=== PATIENT | female | born 1990 | race Caucasian/White ===

== ENCOUNTER 2020-11-27 21:23 | Emergency (ER) | payer OTHER, SELFPAY ==
[2020-11-27 21:51] VITALS: BP 123/71; PULSE 94; RESP 16; TEMP 36.5; O2SAT 96; BMI 32.1
--- NOTE | 2020-11-27 22:12 | XRR_ITS ---
PROCEDURE INFORMATION: Exam: XR Left Elbow Exam date and time: 11/27/2020 10:12 PM Age: 30 years old Clinical indication: Injury or trauma; Work related; Left; Patient HX: Fall with laceration to posterior aspect of elbow. ; Additional info: Injury/laceration TECHNIQUE: Imaging protocol: XR Left elbow. Views: 3 or more views. COMPARISON: No relevant prior studies available. FINDINGS: Bones/joints: There is a laceration in the posterior aspect of the proximal forearm. There is no evidence of fracture or dislocation. Soft tissues: No opaque foreign body is identified. XR/XR elbow LT min 3V* [id number] IMPRESSION: 1. Soft tissue laceration 2. There is no evidence of fracture or dislocation.
--- NOTE | 2020-11-27 22:32 | ED_ITS ---
HPI - Wound/Laceration General: Chief Complaint: Wound/Laceration Stated Complaint: L arm laceration Time Seen by Provider: 11/27/20 22:32 Source: patient Mode of arrival: ambulatory Limitations: no limitations History of Present Illness: HPI narrative: Patient is a 30-year-old female who presents to ED today for evaluation of a laceration to her left elbow that she sustained while at work. Patient tells me she accidentally tripped/slipped and fell while at work and struck her left elbow on an object sustaining a laceration. Last tetanus unknown. No other injury sustained during the fall. She states this is a Worker's Comp injury. Onset (ago): hour(s) Extremity Location: Left: elbow Place: work Patient tetanus UTD: No Context: accidental Associated symptoms: Reports no associated symptoms Treatments prior to arrival: bandage Review of Systems Musc: Reports: joint pain (L elbow); Denies: joint swelling, joint redness, joint warmth or limited range of motion Skin/Breast: Reports: other (laceration) Neuro: Denies: numbness in extremities, weakness in extremities or sensory changes [facility] ED Female Reproductive History: Date of last menstrual period: 11/14/20 Physical Exam Const: COMMON NORMALS: no acute distress, patient oriented x3, no limitations and alert GENERAL APPEARANCE: cooperative Extremity: COMMON NORMALS: full ROM, capillary refill normal, no joint enlargement and no clubbing, cyanosis or edema GENERAL: Yes normal exam except as noted LEFT UPPER EXTREMITY: Yes elbow joint (3.0 laceration to posterior elbow) Left elbow: Yes ROM (normal) and Yes neurovascular exam (normal) EXTREMITY IMAGE (BACK): 1. 3.0 fairly superficial laceration Neuro: COMMON NORMALS: patient oriented x3, moves all extremities, no focal motor deficits and no sensory deficits noted SENSORIUM/ORIENTATION: Yes alert Skin: NARRATIVE SKIN EXAM: see extremity assessment for pertinent skin findings Procedures Laceration Laceration 1: Site: upper extremity Side (If applicable): left Size (cm): 3.0 Description: linear Depth: simple, single layer Local Anesthetic: lidocaine 1% Amount of anesthesia used (mL): 1.0 Pre-repair: wound explored and irrigated extensively Skin layer closed with: nylon Size (cm): 4-0 Number of sutures: 7 Technique: simple, interrupted Course Vital Signs: Vital signs: Vital Signs Temperature 97.7 F 11/27/20 21:51 Pulse Rate 94 11/27/20 21:51 Respiratory Rate 16 11/27/20 23:20 Blood Pressure 123/71 11/27/20 21:51 Pulse Oximetry 96 11/27/20 21:51 MDM - Wound/Laceration Imaging Data^: XR L elbow: My impression: soft tissue lac; no fbs, fxs, or dislocations noted Radiologist's impression: [address] [address] XRay Report Signed Patient: Louise Cardona Unit #: [id number] : 1990 Acct#:[id number] Age/Sex: 30 / F ADM Date: 11/13 11/02 Loc: ER Room/Bed: Attending Dr: Ordering Provider/Ordering MD: Estela Lloyd Date of Service: 11/27/20 Procedure(s): XR elbow LT min 3V* [id number] Accession Number(s): [id number] Report Number: [id number] PROCEDURE INFORMATION: Exam: XR Left Elbow Exam date and time: 11/27/2020 10:12 PM Age: 30 years old Clinical indication: Injury or trauma; Work related; Left; Patient HX: Fall with laceration to posterior aspect of elbow. ; Additional info: Injury/laceration TECHNIQUE: Imaging protocol: XR Left elbow. Views: 3 or more views. COMPARISON: No relevant prior studies available. FINDINGS: Bones/joints: There is a laceration in the posterior aspect of the proximal forearm. There is no evidence of fracture or dislocation. Soft tissues: No opaque foreign body is identified. XR/XR elbow LT min 3V* [id number] IMPRESSION: 1. Soft tissue laceration 2. There is no evidence of fracture or dislocation. Dictated By: Gunenr Gasca Signed By: Gunner Gasca Signed Date/Time: 11/27/202250 DD/ 49 Discharge Plan Discharge Patient Disposition: Home Clinical Impression: Laceration of left elbow without complication Qualifiers: Encounter type: initial encounter Qualified Code(s): S51.012A - Laceration without foreign body of left elbow, initial encounter Condition: Stable Discharge Orders: Discharge ED (Routine); Ordered 11/27/20 Ordered By: Estela Lloyd Patient Instructions: Suture Care (ED), Laceration (ED) Activity Restrictions/Additional Instructions: Keep wound/laceration clean with warm soap and water twice daily. Monitor for signs of infection such as redness, swelling, increased pain, or drainage. Please seek medical re-evaluation if these occur. If you received sutures today these will need to be removed (unless you were told by the provider that they are absorbable). The provider should have discussed with you the length of time until removal-7 DAYS. You may return to the emergency department for this service. If your wound was closed with Steri-Strips or glue/adhesive these will fall off within the next week or so. Follow up with Worker's Comp as instructed. Coding Level of Care Code ED [employer] Associate Professor for Maximilian Roblero
[2020-11-27] MEDS: tetanus-diphtheria tox (adult) 0.5 mL SDV IM (23:10)
[2020-11-27 23:20] VITALS: RESP 16
== END 2020-11-27 23:21 | disposition home or self-care (01) ==
PROVIDERS: Emergency Provider Physician Assistant
DX: S51.012A Laceration without foreign body of left elbow, initial encounter (principal); W01.10XA Fall on same level from slipping, tripping and stumbling with subsequent striking against unspecified object, initial encounter; Y99.0 Civilian activity done for income or pay; Z23 Encounter for immunization
CPT/HCPCS: 12002; 73080; 90714; 96372; 99283

== ENCOUNTER 2020-12-15 15:35 | Emergency (ER) | payer MEDICAID, SELFPAY ==
[2020-12-15 16:13] VITALS: BP 110/57; PULSE 99; RESP 18; TEMP 36.8; O2SAT 97; BMI 32.1
--- NOTE | 2020-12-15 16:27 | ED_ITS ---
HPI - Back Pain/Injury General: Chief Complaint: Back Pain/Injury Stated Complaint: BACK PAIN Time Seen by Provider: 12/15/20 16:23 History of Present Illness: HPI Narrative: Patient is a 30-year-old female comes to the ED with lower back pain. She states she has been dealing with lower back pain for the past 3 weeks but today she woke up and felt more intense lower back pain with pain radiating down her left leg. Denies any trauma or injury to cause worsening pain. Denies any bladder bowel incontinence, pelvic anesthesia or weakness to lower extremities. Associated symptoms: Deny abdominal pain, chills, dysuria, fatigue, fever(s), hematuria, nausea or vomiting Review of Systems Const: Denies: fever(s), chills or fatigue Eyes: Denies: change in vision or eye discomfort ENMT: Denies: throat pain, odynophagia, nasal discharge or nasal congestion Card: Denies: chest pain, palpitations, edema, swelling of feet/ankles, dyspne a on exertion or orthopnea Resp: Denies: dyspnea, productive cough or non-productive cough GI: Denies: abdominal pain, nausea, vomiting, diarrhea, constipation or hematochezia : Denies: flank pain, dysuria or hematuria Musc: Reports: back pain (lower back); Denies: neck pain or extremity swelling Skin/Breast: Denies: rash or new lesions Neuro: Denies: headache(s), numbness in extremities or weakness in extremities [facility] ED Female Reproductive History: Date of last menstrual period: 12/09/20 Physical Exam Const: COMMON NORMALS: no acute distress, patient oriented x3, healthy appearing and alert GENERAL APPEARANCE: cooperative and comfortable HENMT: COMMON NORMALS: normocephalic HEAD & SCALP: normocephalic MOUTH: Normal oral and palatal mucosa present THROAT: posterior oropharynx normal and uvula midline Neck/C-Spine: COMMON NORMALS: supple GENERAL: Yes normal visual inspection Resp: COMMON NORMALS: normal respiratory effort, No retractions, No use of accessory muscles and clear to auscultation bilaterally AUSCULTATION: clear to auscultation bilaterally Cardio: COMMON NORMALS: regular rate, regular rhythm, S1 normal heart sound present, S2 normal heart sound present, No gallops present (Cardio), No clicks present (Cardio), No murmurs present (Cardio) and Peripheral pulses 2+ throughout RATE: regular rate RHYTHM: regular rhythm HEART SOUNDS: S1 normal heart sound present and S2 normal heart sound present PERIPHERAL PULSES: Peripheral pulses 2+ throughout GI: COMMON NORMALS: Normal to inspection, nondistended, normoactive bowel sounds present, Soft to palpation, non-tender and no masses PALPATION: Yes Soft to palpation : COMMON NORMALS: Yes no CVA tenderness BLADDER/KIDNEY EXAM: Yes no CVA tenderness Back/Pelvis: COMMON NORMALS: no CVA tenderness LUMBAR SPINE/LOWER BACK: Yes pain with ROM and Yes paraspinal muscle tenderness Extremity: COMMON NORMALS: normal to inspection Neuro: COMMON NORMALS: patient oriented x3 and moves all extremities SENSORIUM/ORIENTATION: Yes alert Skin: GENERAL SKIN EXAM: dry skin Course Vital Signs: Vital signs: Vital Signs Temperature 98.2 F 12/15/20 16:13 Pulse Rate 99 12/15/20 16:13 Respiratory Rate 18 12/15/20 16:13 Blood Pressure 110/57 12/15/20 16:13 Pulse Oximetry 97 12/15/20 16:13 MDM - Back Pain/Injury MDM Narrative: Medical decision making narrative: Patient is a 30-year-old female comes to the ED with lower back pain that radiates down into left leg. Denies any injuries or traumas to cause acute pain. Denies any cauda equina symptoms. Patient was diagnosed with lumbar radiculopathy and discharged home with a prescription for ibuprofen 800, cyclobenzaprine and a Medrol Dosepak. Patient was told to follow-up with her PCP in 7 to 10 days for reevaluation. Return to ED precautions given. Patient understood agree with plan. Discharge Plan Discharge Patient Disposition: Home Clinical Impression: Lumbar radiculopathy Condition: Stable Prescriptions: New ibuprofen 800 mg tablet 800 mg PO Q8H PRN (Reason: pain) Qty: 20 RF: 0 cyclobenzaprine 10 mg tablet 10 mg PO BID PRN (Reason: muscle spasm) Qty: 15 RF: 0 Medrol (Neymar) 4 mg tablets,dose pack See Rx Instructions .ROUTE .COMPLEX Qty: 21 RF: 0 Discharge Orders: Discharge ED (Routine); Ordered 12/15/20 Ordered By: Sascha Rodriguez Discharge Diet: Regular Discharge Activity: Increase activity as tolerated Patient Instructions: Lumbar Radiculopathy (ED) Activity Restrictions/Additional Instructions: Follow-up with medical provider as directed in 7 to 10 days reevaluation. Apply cold pack on lower back and stretch lower back daily to help with symptoms. Take medications as prescribed. Cyclobenzaprine is a muscle relaxer can cause some drowsiness so take at night before bed. Return to the ER or your medical provider if condition worsens. Please read and understand discharge instructions. Thank you for choosing [facility] for your healthcare needs today. Please realize this is an emergency room and that we are providing you with a medical screening exam and this may not be complete and all inclusive of all the testing and or work up that you may need to determine your ailment or severity of your illness. It is very important that you follow up as instructed or that you return to the Emergency Department should you have concerns or if your condition changes or worsens in any way. Coding Level of Care Code ED [employer] Operator for Maximilian Roblero Exam Comprehensive
[2020-12-15] MEDS: dexamethasone 10 mg/mL INJ IM (16:43)
[2020-12-15] MEDS: ketorolac 60 mg/2 mL INJ IM (16:44)
== END 2020-12-15 16:50 | disposition home or self-care (01) ==
PROVIDERS: Emergency Provider Physician Assistant
DX: M54.16 Radiculopathy, lumbar region (principal)
CPT/HCPCS: 96372; 99283; J1100; J1885

== ENCOUNTER 2021-02-06 15:36 | Emergency (ER) | payer MEDICAID, SELFPAY ==
[2021-02-06 15:44] VITALS: BP 109/69; PULSE 75; RESP 17; TEMP 36.1; O2SAT 97; BMI 28.6
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
--- NOTE | 2021-02-06 16:09 | XR_ITS ---
WS: [id number] Exam: XR wrist RT min 3V* [id number] Date/Time of Exam: 02/06/2021 4:23 PM Reason For Exam: injury No acute fracture or dislocation. Soft tissue swelling along the distal ulna. Articular relationships are intact. XR/XR wrist RT min 3V* [id number] IMPRESSION: 1. No fracture or dislocation. 2. Soft tissue swelling along the distal ulna.
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
[2021-02-06 17:37] VITALS: BP 104/70; PULSE 89; RESP 17; O2SAT 97
--- NOTE | 2021-02-07 09:26 | DCPLANNER ---
sales engineer account manager had message to schedule a follow up appointment for patient with ENT. sales engineer account manager faxed patients information to Lou Moran and Anahi at [facility]. Patients information will be printed and reviewed. Clinic will call patient with appointment information.
--- NOTE | 2021-02-12 07:45 | DCPLANNER ---
Patient has a follow up appointment scheduled for Friday, February 12, 2021 at 10:[address] Cornelius. Clinic will call patient with appointment information.
--- NOTE | 2021-02-13 13:31 | DCPLANNER ---
Patient had a follow up appointment scheduled for 02.12.[address] Cornelius at ENT - patient did attend appointment.
== END 2021-02-06 17:37 | disposition home or self-care (01) ==
PROVIDERS: Emergency Provider Nurse Practitioner Family
DX: S02.2XXA Fracture of nasal bones, initial encounter for closed fracture (principal); S60.211A Contusion of right wrist, initial encounter; W20.8XXA Other cause of strike by thrown, projected or falling object, initial encounter
CPT/HCPCS: 70450; 70486; 73110; 99282

== ENCOUNTER 2021-04-04 12:51 | Emergency (ER) | payer MEDICAID, SELFPAY ==
[2021-04-04 13:01] VITALS: BP 125/62; PULSE 98; RESP 20; O2SAT 96
[2021-04-04 13:04] VITALS: BP 125/62; PULSE 84; RESP 18; TEMP 36.6; O2SAT 94; BMI 27.4
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
[2021-04-04] MEDS: acetaminophen-codeine 300-30mg Tablet 1 TAB PO (13:17)
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
[2021-04-04 14:10] VITALS: BP 97/46; PULSE 57; O2SAT 97
[2021-04-04 14:16] LABS: Charge for UA Resulting for Rev
[2021-04-04 14:35] LABS: Add Urine Microscopic? YES; Bilirubin Urine Neg (Negative); Blood Urine Neg (Negative); Glucose Urine UA Norm (Normal); Ketones Urine Negative (Negative); Leukocyte Esterase Urine Negative (Negative); Nitrate Urine Negative (Negative); Protein Urine Neg (Negative); Urine Appearance Clear (CLEAR); Urine Color Straw (Yellow); Urobilinogen Urine Norm (Negative); pH Urine 6.5 (5-7)
[2021-04-04 14:36] LABS: Add Urine Culture? No; Bacteria Urine TRACE /hpf; Mucus Urine TRACE /hpf; Transitional Epi Cells Urine 0-4 /hpf; WBC Urine 0-4 /hpf (0-5)
[2021-04-04 16:10] VITALS: BP 108/63; PULSE 86; O2SAT 98
--- NOTE | 2021-04-05 09:32 | DCPLANNER ---
manager of program had message to schedule a follow up appointment for patient with ortho. manager of program called the ortho clinic, spoke with Candace, gave clinic patients information. manager of program was told that patients information would be printed and reviewed. Clinic will call patient with appointment information.
--- NOTE | 2021-04-25 09:48 | DCPLANNER ---
Patient had a follow up appointment scheduled for 04.16.21 with Koby Donnelly at [facility] - patient did attend appointment.
== END 2021-04-04 17:59 | disposition home or self-care (01) ==
PROVIDERS: Emergency Provider Emergency Medicine
DX: S32.018A Other fracture of first lumbar vertebra, initial encounter for closed fracture (principal); F17.210 Nicotine dependence, cigarettes, uncomplicated; V89.2XXA Person injured in unspecified motor-vehicle accident, traffic, initial encounter
CPT/HCPCS: 72131; 81001; 81003; 81025; 97760; 99283; L0637

== ENCOUNTER → 2021-04-16 11:31 | Outpatient (BNVA) | payer MEDICAID, SELFPAY | PROVIDERS: Visit Provider Physician Assistant | DX: S32.010D Wedge compression fracture of first lumbar vertebra, subsequent encounter for fracture with routine healing (principal); X58.XXXD Exposure to other specified factors, subsequent encounter | CPT/HCPCS: 72100 ==